=== PATIENT | female | born 1955 | race African-American/Black ===

== ENCOUNTER 2019-04-01 10:21 | Emergency (ER) | payer OTHER ==
[2019-04-01 10:28] VITALS: BP 119/76; PULSE 80; TEMP 98.4
--- NOTE | 2019-04-01 10:37 | PDOC ---
History of Present Illness - General Chief Complaint: Allergic Reaction Stated Complaint: Allergic Reaction Time Seen by Provider: 04/01/19 10:31 - History of Present Illness Initial Comments: 63 year old female with no known PMH except for mild cognitive impairment presenting from [facility] with right sided lip and mouth swelling since 12: 00 AM. Patient states that she has not used any new detergents, soaps, or other products. States that she felt some mild swelling early this [id number] which has been worsening. She does have some mild right arm pruritus with purported rash. Denies any nausea, vomiting, diarrhea, SOB, cough, wheezing, or other symptoms. She does not take any meds and did not take any meds for this issue. 04/01/19 12:26 Past History - Past Medical History Allergies/Adverse Reactions: Allergies Allergy/AdvReac Type Severity Reaction Status Date / Time No Known Allergies Allergy Verified 04/01/19 10:33 Home Medications: Ambulatory Orders Prednisone [Prednisone 50 MG TABLETS] 50 mg PO DAILY 3 Days #3 tablet 04/01/19 Review of Systems - Review of Systems Constitutional: No: Chills, Diaphoresis, Fever HEENTM: Yes: Mouth Swelling. No: Eye Pain, Blurred Vision, Tearing Respiratory: No: Cough, Orthopnea, Shortness of Breath Cardiac (ROS): No: Chest Pain, Edema, Irregular Heart Rate ABD/GI: No: Diarrhea, Nausea, Vomiting : No: Burning, Dysuria, Discharge Musculoskeletal: No: Back Pain, Gout, Joint Pain Integumentary: Yes: Change in Color, Erythema, Lesions, Pruritus, Rash. No: Bruising Neurological: No: Headache, Numbness, Paresthesia Psychiatric: Yes: Other (mild cogntiive impairment). No: Anxiety, Depression Endocrine: No: Increased Thirst, Increased Urine Hematologic/Lymphatic: No: Anemia, Blood Clots, Easy Bleeding *Physical Exam - Vital Signs Last Vital Signs Temp Pulse Resp BP Pulse Ox 98.4 F 80 18 119/76 99 04/01/19 10:26 04/01/19 10:26 04/01/19 10:26 04/01/19 10:26 04/01/19 10:26 - Physical Exam General Appearance: Yes: Nourished, Appropriately Dressed. No: Apparent Distress HEENT: positive: EOMI, JAROD, Normal Voice. negative: Normal ENT Inspection ( left sided facial and lip swellign without oropharyngeal involvement ) Neck: positive: Trachea midline, Normal Thyroid, Supple. negative: Tender, Rigid Respiratory/Chest: positive: Lungs Clear, Normal Breath Sounds. negative: Chest Tender, Respiratory Distress, Accessory Muscle Use Cardiovascular: positive: Regular Rhythm, Regular Rate Gastrointestinal/Abdominal: positive: Normal Bowel Sounds, Flat, Soft. negative : Tender Lymphatic: negative: Adenopathy, Tenderness Musculoskeletal: positive: Normal Inspection. negative: Decreased Range of Motion Extremity: positive: Normal Capillary Refill, Normal Inspection, Normal Range of Motion. negative: Tender Integumentary: positive: Normal Color, Dry, Warm, Other Neurologic: positive: Alert, Normal Mood/Affect, Normal Response, Motor Strength 5/5. negative: Fully Oriented (Oriented ot person and time but not place) ED Treatment Course - LABORATORY CBC & Chemistry Diagram: 04/01/19 11:05 04/01/19 11:05 Medical Decision Making - Medical Decision Making 63 year old with right sided facial swelling but no respiratory or GI involvement. Questionable skin involvement because erythematous lesions on right arm appear to be older in chronicity. Patient given 125 Solumedrol and Benadryl 25 with subjective improvement of symptoms but no objective decrease in welling. Will check one more time and consider admitting observing. 04/01/19 14:13 Patient improved so will DC with three days of oral prednisone 40. However, of note, the team questions whether this is a true allergic reaction vs. local reaction given the chronologity of the symptoms. 04/01/19 16:12 Discharge - Discharge Information Problems reviewed: Yes Clinical Impression/Diagnosis: Swollen lip Condition: Stable Disposition: HOME - Admission No - Additional Discharge Information Prescriptions: Prednisone [Prednisone 50 MG TABLETS] 50 mg PO DAILY 3 Days #3 tablet - Follow up/Referral Referrals: ON STAFF,NOT [Primary Care Provider] - - Patient Discharge Instructions Patient Printed Discharge Instructions: DI for Eye Allergic Reaction Additional Instructions: Please use prednisone 50 mg daily for three days. Pelase follow up with your PCP in a week. Please return to the ED if you have new or worsening symptoms. - Post Discharge Activity
[2019-04-01] MEDS ORDERED: methylPREDNISolone NA SUCC 125 MG/2 ML VIAL IVPB ONE ×2 (10:39→10:47)
[2019-04-01] MEDS ORDERED: DEXAMETHASONE SOD PHOSPHATE 10 MG/1 ML VIAL IM ONE (10:43)
[2019-04-01] MEDS ORDERED: diphenhydrAMINE HCL 25 MG CAPSULE (FP) PO ONE (10:44)
[2019-04-01 10:47] VITALS: BMI 26.6
[2019-04-01] MEDS ORDERED: methylPREDNISolone NA SUCC 125 MG/2 ML VIAL ONE ×2 (10:50→13:07)
[2019-04-01 11:18] LABS: BASO % 0.7 % (0-2.0); EOS % 1.5 % (0-4.5); HEMATOCRIT 45.3 % (32.4-45.2); HEMOGLOBIN 15.1 GM/dL (10.7-15.3); LYMPH % 24.6 % (8-40); MCH 32.1 pg (25.7-33.7); MCHC 33.3 g/dl (32.0-36.0); MEAN CELL VOLUME 96.4 fl (80-96); MEAN PLT VOLUME 7.6 fl (7.5-11.1); NEUT % 64.2 % (42.8-82.8); PLATELET COUNT 283 K/MM3 (134-434); RBC 4.71 M/mm3 (3.60-5.2); RDW 14.5 % (11.6-15.6); WHITE BLOOD COUNT 3.6 K/mm3 (4.0-10.0)
[2019-04-01 11:37] LABS: ALBUMIN 3.9 g/dl (3.4-5.0); BILIRUBIN,TOTAL 0.5 mg/dL (0.2-1); BLOOD UREA NITROGEN 7.9 mg/dL (7-18); CALCIUM 9.5 mg/dL (8.5-10.1); CREATININE 0.9 mg/dL (0.55-1.3); POTASSIUM 3.9 mmol/L (3.5-5.1); TOT PROT 7.4 g/dl (6.4-8.2)
--- NOTE | 2019-04-01 11:40 | PDOC ---
Documentation entered by Marko Whitman SCRIBE, acting as scribe for Brian Farris MD. Brian Farris MD: This documentation has been prepared by the J Carlos de la torre Daniel, SCRIBE, under my direction and personally reviewed by me in its entirety. I confirm that the documentation accurately reflects all work, treatment, procedures, and medical decision making performed by me. 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 The patient reports that her lip swelling began today and denies eating any food today that could have caused it. Last PO intake was last night - mac and cheese. She denies any swelling to tongue or throat but endorses itchy rash to upper extremities that has been present for several days. Patient states that she had one other episode of swelling like this and states that it resolved on its own. Pt denies CP/SOB. Denies N/V/D. Allergies: NKA - Physicial Exam PE: 04/01/19 11:35 "GENERAL: Awake, alert, and fully oriented, in no acute distress. HEAD: No signs of trauma EYES: PERRLA, EOMI, sclera anicteric, conjunctiva clear ENT: + sweling to upper and lower lip, no tongue or uvla swelling, Auricles normal inspection, hearing grossly normal, nares patent, oropharynx clear without exudates. Moist mucosa NECK: Nontender, no stepoffs, Normal ROM, supple, no lymphadenopathy, JVD, or masses LUNGS: Breath sounds equal, clear to auscultation bilaterally. No wheezes, and no crackles HEART: Regular rate and rhythm, normal S1 and S2, no murmurs, rubs or gallops ABDOMEN: Soft, nontender, normoactive bowel sounds. No guarding, no rebound. No masses EXTREMITIES: Normal range of motion, no edema. No clubbing or cyanosis. No cords, erythema, or tenderness NEUROLOGICAL: Cranial nerves II through XII intact. 5/5 strength and sensation in all extremities, Normal speech, normal gait, normal cerebellar function SKIN: + papular rash to bilateral upper extremities, no vesicles/pustules - Medical Decision Making 04/01/19 11:36 63 F with lip swelling and rash. Possible allergic reaction. Pt not on any meds and did not eat anything today. Hereditary angioedema is possible as pt reports one prior similar episode that resolved spontaneously. - Labs - Steroids, benadryl - Reassess 04/01/19 16:28 Labs wnl Pt reassessed - swelling significantly improved. Will DC with short course of prednisone Pt is well appearing, with normal vitals. Clinically stable for DC at this time. I discussed the physical exam findings, ancillary test results and final diagnoses with the patient. I answered all of the patient's questions. The patient was satisfied with the care received and felt comfortable with the discharge plan and treatment plan. The patient agrees to follow up with the primary care physician within 24-72 hours.
== END 2019-04-01 17:57 | disposition home or self-care (01) ==
LOC: JER 10:21
PROC: 3E033GC Introduction of Other Therapeutic Substance into Peripheral Vein, Percutaneous Approach (ICD-10-PCS; principal; 2019-04-01)
DX: R22.0 Localized swelling, mass and lump, head (principal); G31.84 Mild cognitive impairment of uncertain or unknown etiology
CPT/HCPCS: 36415; 80053; 85025; 96374; 96375; 99282-25